=== PATIENT | female | born 1950 ===

== ENCOUNTER 2020-07-26 14:45 | Emergency (ER) | payer MEDICARE ==
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
[2020-07-26] MEDS ORDERED: Sodium Chloride 0.9% 1,000 ML IV SCH (18:30)
== END 2020-07-26 19:21 | disposition home or self-care (01) ==
LOC: JP.ED 14:45
DX: K94.23 Gastrostomy malfunction (principal); E78.00 Pure hypercholesterolemia, unspecified; E11.9 Type 2 diabetes mellitus without complications; K21.9 Gastro-esophageal reflux disease without esophagitis; Z79.899 Other long term (current) drug therapy
CPT/HCPCS: 99282; J1642; J7030

== ENCOUNTER 2020-09-28 16:08 | Emergency (ER) | payer MEDICARE ==
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
== END 2020-09-28 17:46 | disposition home or self-care (01) ==
LOC: JP.ED 16:08
DX: R07.2 Precordial pain (principal); C34.90 Malignant neoplasm of unspecified part of unspecified bronchus or lung; E78.00 Pure hypercholesterolemia, unspecified; E11.9 Type 2 diabetes mellitus without complications; Z79.899 Other long term (current) drug therapy
CPT/HCPCS: 93005; 99284-25